=== PATIENT | male | born 2000 | race Caucasian/White ===

== ENCOUNTER 2022-02-07 10:44 | Emergency (ER) | payer SELFPAY ==
[~2022-02-07] VITALS: Ht 157.5 cm; Wt 75.0 kg
[2022-02-07 11:17] VITALS: BP 124/68
[2022-02-07] MEDS ORDERED: ONDANSETRON HCL 4MG/2ML INJ IV STA (11:19)
[2022-02-07] MEDS ORDERED: SODIUM CHLORIDE 0.9% 1,000 ML IV ONE (11:30)
[2022-02-07] MEDS ORDERED: ONDANSETRON 4MG ODT PO ONE (12:15)
[2022-02-07] MEDS ORDERED: ACETAMINOPHEN 325MG TABLET PO ONE (12:15)
== END 2022-02-07 12:20 | disposition left against medical advice (07) ==
LOC: ER 11:36
DX: U07.1 COVID-19 (principal); M79.18 Myalgia, other site; R11.2 Nausea with vomiting, unspecified
CPT/HCPCS: 71045; 99283; J7030